=== PATIENT | female | born 1990 | race American Indian/Alaskan Native ===

== ENCOUNTER 2019-08-19 20:29 | Emergency (ER) | payer SELFPAY ==
[2019-08-19 20:40] VITALS: BP 105/47
[2019-08-19] MEDS ORDERED: ONDANSETRON 4 MG ODT TAB PO ONE (21:25)
[2019-08-19] MEDS ORDERED: ACETAMINOPHEN 500 MG TAB PO ONE (21:25)
--- NOTE | 2019-08-19 21:31 | Event Note ---
ED Screening Note Date of service: 08/19/19 Time: 21:30 ED Screening Note: Patient is a A0 29 yo AA female who c/o suprapubic pain, heavy vaginal bleeding for 12 hours. Patient's LMP was 06/17/2019. Patient denies nausea, vomiting, diarrhea, dizziness, fever and chills. This initial assessment/diagnostic orders/clinical plan/treatment(s) is/are subject to change based on patients health status, clinical progression and re- assessment by fellow clinical providers in the ED. Further treatment and workup at subsequent clinical providers discretion. Patient/guardian urged not to elope from the ED as their condition may be serious if not clinically assessed and managed. Initial orders include: CBC, CMP. ABO/RHO, transvaginal US, hcg Quant, Tylenol
== END 2019-08-19 21:00 | disposition left against medical advice (07) ==
LOC: ED 20:29
DX: R10.30 Lower abdominal pain, unspecified (principal); Z53.21 Procedure and treatment not carried out due to patient leaving prior to being seen by health care provider